=== PATIENT | female | born 2000 | race Caucasian/White ===

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

== ENCOUNTER 2019-04-02 16:15 | Emergency (ER) | payer OTHER, BC ==
[~2019-04-02] VITALS: Ht 167.6 cm; Wt 88.5 kg
[2019-04-02] MEDS ORDERED: CODEINE-GUAIFE120 ML PO (18:09)
[2019-04-02] MEDS ORDERED: BENZ100A PO (18:09)
== END 2019-04-02 18:17 | disposition home or self-care (01) ==
LOC: ER 16:15
DX: R05 Cough (principal); R11.10 Vomiting, unspecified
CPT/HCPCS: 71046; 99283-25

== ENCOUNTER 2021-10-14 06:14 | Day surgery (SDC) | payer BC, OTHER ==
[~2021-10-14] VITALS: Ht 167.6 cm; Wt 83.6 kg
[~2021-10-14 06:14] MED LIST changes: +BENZ100A PO; +CODEINE-GUAIFE120 ML PO
--- NOTE | 2021-10-14 07:54 | NUR ---
10/14/21 [id number] Garcia Mccormick ABDOMEN PREPPED WITH DURAPREP BY [facility].JULIEN.
== END 2021-10-14 09:41 | disposition home or self-care (01) ==
LOC: ORSCSDS 06:14
PROVIDERS: Obstetrics & Gynecology
PROC: 0U5F4ZZ Destruction of Cul-de-sac, Percutaneous Endoscopic Approach (ICD-10-PCS; principal; 2021-10-14 07:30)
DX: R10.2 Pelvic and perineal pain (principal); N94.89 Other specified conditions associated with female genital organs and menstrual cycle; N80.3 Endometriosis of pelvic peritoneum; K66.0 Peritoneal adhesions (postprocedural) (postinfection); Z98.84 Bariatric surgery status
CPT/HCPCS: A9270; J0171; J1100; J1885; J2250; J2405; J2704; J2765; J2795; J3010

== ENCOUNTER 2023-04-02 08:40 | Day surgery (SDC) | payer OTHER ==
[~2023-04-02] VITALS: Ht 170.2 cm; Wt 83.5 kg
[2023-04-02 10:48] VITALS: BP 111/78
== END 2023-04-02 11:03 | disposition home or self-care (01) ==
LOC: ORSCSDS 08:40
PROVIDERS: Surgery
PROC: 0DB68ZX Excision of Stomach, Via Natural or Artificial Opening Endoscopic, Diagnostic (ICD-10-PCS; principal; 2023-04-02 10:00)
PROC: 0DB98ZX Excision of Duodenum, Via Natural or Artificial Opening Endoscopic, Diagnostic (ICD-10-PCS; principal; 2023-04-02 10:00)
DX: K90.41 Non-celiac gluten sensitivity (principal); Z83.79 Family history of other diseases of the digestive system; K29.70 Gastritis, unspecified, without bleeding; K52.9 Noninfective gastroenteritis and colitis, unspecified; Z98.84 Bariatric surgery status; Z79.899 Other long term (current) drug therapy
CPT/HCPCS: 88305; 88342